=== PATIENT | female | born 1950 | race Caucasian/White ===

== ENCOUNTER 2021-02-28 23:57 | Emergency (ER) | payer MEDICARE, SELFPAY ==
[2021-02-28 23:58] VITALS: BP 165/84; PULSE 65; RESP 14; TEMP 36.6; O2SAT 98; BMI 31.1
[2021-03-01 00:04] VITALS: O2SAT 100
--- NOTE | 2021-03-01 00:20 | RAD_ITS ---
STUDY: X-RAY CHEST REASON FOR EXAM: Female, 70 years old. dyspnea TECHNIQUE: Single AP portable view of the chest. COMPARISON: None. FINDINGS: No focal infiltrates or effusions. No pneumothorax. Normal size heart. Normal mediastinum and juan j. Normal visualized pulmonary arteries. Normal visualized aortic arch and descending thoracic aorta. Normal visualized thoracic spine. Normal visualized ribs, clavicles, and shoulders. There is no demonstrated abnormality of the visualized soft tissue structures of the upper abdomen. RAD/Chest 1 View (Portable) IMPRESSION: Normal x-ray examination of the chest. Electronically Signed: Roly Foster MD at 0:55 EDT , Service support ,
--- NOTE | 2021-03-01 00:20 | EKG12_ITS ---
Test Reason : PALPATATIONS Blood Pressure : / mmHG Vent. Rate : 057 BPM Atrial Rate : 057 BPM P-R Int : 188 ms QRS Dur : 116 ms QT Int : 428 ms P-R-T Axes : 064 021 047 degrees QTc Int : 416 ms Sinus bradycardia Otherwise normal ECG Confirmed by SHARONDA LOUIS, DULCE ([id number]), dictionary editor NATHALY BREWER ([id number]) on 03/02/2021 1:59:12 PM Referred By: VALE Confirmed By:DULCE MCDONOUGH MD
--- NOTE | 2021-03-01 00:21 | EX.ED.DYSGE1 ---
HPI History of Present Illness Chief Complaint: Shortness of Breath Detail of Chief Complaint: Palpitations and shortness of breath Informant: patient Narrative Narrative: Patient presents to the emergency department stating that she is not been feeling well over the last 2 days. Patient states that she has had increase in palpitations and feels like there is a fluttering in her chest. At times she feels like she has some shortness of breath associated with it. Tonight she checked her blood pressure and around 9:30 PM it was 111/64 and her heart rate was in the 50s. Her daughter advised her to come in and get evaluated. Patient is currently on metoprolol 25 mg daily for history of palpitations that she has been on since spring. Patient denies any chest pain currently. She is not had any fever or recent illness. Patient describes also kind of a weird headache. Denies any nausea or vomiting or photophobia. Prior similar symptoms: Yes [facility] Medical History (Updated 03/01/21 @ 01:[address] Vijay Bowie, DO) Hypercholesterolemia Home Medications metoprolol succinate 25 mg PO DAILY 03/01/21 [History Last Taken Unknown] sertraline 50 mg PO DAILY 03/01/21 [History Last Taken Unknown] simvastatin 20 mg DAILY 03/01/21 [History Last Taken Unknown] Social History Smoking Status: Never smoker [facility] ED Constitutional Constitutional ED: Reports systems reviewed and no addt'l complaints, except as documented; Denies body ache(s), change in weight or chills Eyes Eyes: Denies acute decrease in peripheral vision, change in vision, double vision or loss of vision ENT ENT ED: Reports none; Denies ear pain, lip swelling, loss taste/smell, neck pain, otalgia or sore throat Cardiovascular Cardiovascular: Reports none and palpitations; Denies abdominal pain, chest pain with activity, leg edema, lightheadedness, rapid heart rate or syncope Respiratory/Chest Respiratory/Chest: Reports none and dyspnea; Denies change in mental status, dry cough, hemoptysis, shortness of breath at rest or shortness of breath with exertion Gastrointestinal Gastrointestinal: Reports none; Denies abdominal pain, change in stool character, diarrhea, hematemesis, hematochezia, melena, rectal bleeding or vomiting Genitourinary Genitourinary ED: Reports none; Denies abdominal discomfort, anuria, dysuria, genital pain or polyuria Musculoskeletal Musculoskeletal: Reports none; Denies arthralgias, back pain, difficulty walking, extremity pain, muscle weakness or myalgias Integumentary Reports none; Denies abscess or rash Neurologic Neurologic: Reports none and headache(s); Denies abnormal gait, confusion, focal weakness, frequent falls, loss of vision, numbness, paresthesias, radicular pain, vertigo or weakness Psychiatric Psychiatric: Reports systems reviewed and no addt'l complaints, except as documented and none; Denies behavioral changes, confusion, difficulty concentrating, hallucinations, suicidal ideation, tactile hallucinations or visual hallucinations Endocrine Endocrinology: Denies none, cold intolerance, excessive sweating, fatigue or heat intolerance Hematologic/Lymphatic Hematologic/Lymphatic: Reports none; Denies anemia, easy bleeding or easy bruising Allergic/Immunologic Allergic/Immunologic ED: Denies as per HPI, none, lip swelling, mouth swelling, throat swelling, tongue swelling or hives EXAM Physical Exam Const Vital Signs: 02/28/21 23:58 03/01/21 00:04 Temperature 97.8 F Temperature Source Temporal Pulse Rate 65 Respiratory Rate 14 Respiratory Effort Normal Respiratory Depth Normal Blood Pressure 165/84 H Blood Pressure Mean 111 Pulse Ox 98 Oxygen Delivery Method Room Air Room Air Positive well nourished and well developed General Appearance ED: well developed and NAD HEENT Reports TM's clear and moist mucous membranes normocephalic and atraumatic; Negative for trauma or tenderness Tympanic Membrane ED: Yes TM's clear Eyes PERRL and EOMs intact bilaterally General Eye ED: Negative for pale conjunctiva or scleral icterus Neck no lymphadenopathy, supple and no JVD General: Negative for tenderness Chest Wall inspection of chest normal and palpation of chest normal Chest: Negative for tenderness Resp normal respiratory effort and clear to auscultation bilaterally Effort and Inspection: Negative for respiratory distress or pain with movement Auscultation: Negative for rhonchi, wheezes or diminished lung sounds Cardio regular rate, regular rhythm, S1 normal heart sound, S2 normal heart sound and no murmurs Rate: other Other Details: Occasional ectopy Peripheral Pulses: pulses 2+ throughout GI normal to inspection, nondistended, normoactive bowel sounds, soft to palpation, non-tender, non-distended and no masses Back/Spine no CVA tenderness and no thoracic nor lumbar tenderness Extremity normal to inspection General Extremety ED: Negative for edema General Extremity: Negative for edema Neuro oriented x3, CN's II-XII intact bilaterally, no sensory deficits noted and gait normal Sensorium / Orientation: awake, alert, oriented to person, oriented to place and oriented to time Motor Exam: strength 5/5 throughout and strength abnormal Psych mental status grossly normal Skin no rashes or lesions noted and no wounds MDM MDM MDM Narrative Medical decision making narrative: Patient was noted to be bradycardic while on the monitor in the department with rates in the upper 40s all [address] way to 60s. She has occasional PVCs and PACs noted. Patient had no high-grade blocks noted on EKG. 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 Patient's blood pressure has been in the 140s systolic. She is not having episodes of syncope or near syncope. I feel patient can be safely discharged to home. Lab Data Attestation: I reviewed the patient's lab results. Labs: Laboratory Results - last 24 hr 03/01/21 03/01/21 00:03 00:03 WBC 4.7 RBC 4.66 Hgb 13.8 Hct 42.2 MCV 90.6 MCH 29.6 MCHC 32.7 RDW Std Deviation 45.4 H RDW Coeff of Liang 13.7 Plt Count 220 MPV 11.8 Sodium 139 Potassium 3.3 L Chloride 106 Carbon Dioxide 30.0 Anion Gap 3 L BUN 11 Creatinine 0.55 Estim Creat Clear Calc 46.50 Est GFR (MDRD) Af Amer 141 Est GFR (MDRD) Non-Af 116 BUN/Creatinine Ratio 20.0 Glucose 98 Calcium 10.1 Troponin I High Sens 7 Radiography Chest X-Ray - ED: 1 View Diagnostic Testing: Radiology Impression Chest X-Ray 03/01/21 00:20 IMPRESSION: Normal x-ray examination of the chest. Electronically Signed: Roly Foster MD at 0:55 EDT , Service support , 1 view chest x-ray obtained interpreted by myself as no acute disease process. Radiology in agreement. EKG Initial EKG: Attestation: I personally reviewed and interpreted this EKG as follows: Comments: Sinus bradycardia with a ventricular rate of 57 bpm with no acute ST segment changes Discharge Plan Triage Chief Complaint: Shortness of Breath ED Provider: Vijay Bowie Dx/Rx/DC Orders Clinical Impression: Palpitation, Bradycardia, Frequent PVCs Instructions: PVCs, ED Bradycardia Prescriptions: No Action simvastatin 10 mg tablet 20 mg DAILY RF: 0 metoprolol succinate 25 mg tablet extended release 24 hr 25 mg PO DAILY RF: 0 sertraline 50 mg tablet 50 mg PO DAILY RF: 0 Primary Care Provider: Robert Encinas Referrals: Robert Encinas MD [Primary Care Provider] - Disposition Disposition: Home, Self Care
[2021-03-01 00:31] LABS: Hematocrit 42.2 % (37-47); Hemoglobin 13.8 g/dL (12.0-15.0); Mean Corp Hgb Conc 32.7 g/dL (32-36); Mean Corpuscular Hgb 29.6 pg (27.0-32.0); Mean Corpuscular Volume 90.6 fL (81-99); Mean Platelet Vol. 11.8 fl (6.2-12.0); Platelet Count 220 K/mm3 (150-450); RBC Distribution Width CV 13.7 % (11.6-14.6); RBC Distribution Width SD 45.4 fl (35.1-43.9); Red Blood Count 4.66 M/mm3 (4.2-5.4); White Blood Count 4.7 K/mm3 (4.4-11.0)
[2021-03-01 00:53] LABS: Anion Gap 3 (5-15); BUN 11 mg/dL (7-18); Calcium,Total 10.1 mg/dL (8.5-10.1); Chloride 106 mmol/L (98-107); Creatinine, Serum 0.55 mg/dL (0.55-1.02); EST Glomerular Filtration Rate 116 mL/min (>60); Est Glom Filt Rate - Afr Amer 141 mL/min (>60); Glucose 98 mg/dL (74-106); Potassium 3.3 mmol/L (3.5-5.1); Sodium Level 139 mmol/L (136-145); Troponin-I HS 7 pg/mL (3.0-54.0)
[2021-03-01 01:44] VITALS: BP 145/66; PULSE 48; RESP 15; O2SAT 96
== END 2021-03-01 01:51 | disposition home or self-care (01) ==
PROVIDERS: Emergency Provider Emergency Medicine; PCP Internal Medicine
DX: R00.2 Palpitations (principal); I49.3 Ventricular premature depolarization; E78.00 Pure hypercholesterolemia, unspecified; Z79.899 Other long term (current) drug therapy
CPT/HCPCS: 71045; 80048; 84484; 85027; 93005; 99284